=== PATIENT | female | born 1990 | race Caucasian/White ===

== ENCOUNTER 2021-12-15 07:49 | Inpatient (IN) ==
[2021-12-15] MEDS ORDERED: LIDOCAINE 1% LOCAL 20 ML VIAL INFIL PRN (09:12)
[2021-12-15] MEDS ORDERED: OXYTOCIN 30 UNITS/500 ML BAG IV PRN ×2 (09:12→09:15)
[2021-12-15 09:24] LABS: Hematocrit (blood only) 37.5 % (34.1-44.9); Hemoglobin 12.7 g/dl (12.0-16.0); Mean Corpuscular Hemoglobin 32.2 pg (25.0-34.0); Mean Corpuscular Hgb Conc 33.9 g/dL (32.0-36.0); Mean Corpuscular Volume 95.2 fL (80.0-100.0); Mean Platelet Volume 11.4 fL (9.4-12.3); Platelet Count 182 K/uL (130-400); RDW Standard Deviation 44.8 fL (36.4-46.3); Red Blood Count 3.94 M/uL (3.93-5.22); White Blood Count 5.15 K/ul (4.8-10.8)
[2021-12-15] MEDS ORDERED: Patient's ALLERGY Info needs ENTERED SCH (09:38)
[2021-12-15] MEDS: LACTATED RINGER'S 1,000 ML IV PRN ×3 (10:04→17:09)
[2021-12-15] MEDS ORDERED: ePHEDrine sulfate 50 MG/ML AMP ONE (13:43)
[2021-12-15] MEDS ORDERED: LIDOCAINE 2%/EPINEPHRINE 1:200,000 20 ML SDV ONE ×2 (13:44→20:49)
[2021-12-15] MEDS ORDERED: fentaNYL citrate 100 MCG/2 ML VIAL ONE (13:44)
[2021-12-15] MEDS ORDERED: BUPIVACAINE 0.25% 30 ML VIAL ONE (13:44)
[2021-12-15] MEDS ORDERED: SODIUM CHLORIDE 0.9% INJ 10 ML VIAL ONE (13:44)
[2021-12-15] MEDS ORDERED: fentaNYL 2MCG/ML ROPIVACAINE 1.25MG/ML 100 ML BAG EPI ONE (13:45)
[2021-12-15] MEDS ORDERED: NALBUPHINE HCL INJ 10 MG/ML AMP IV PRN (13:58)
[2021-12-15] MEDS ORDERED: NALOXONE HCL 1 MG in SODIUM CHLORIDE 0.9% 1000ML 1,000 ML IV PRN (13:58)
[2021-12-15] MEDS ORDERED: NALOXONE HCL 0.4 MG/1 ML VIAL/CARP IV PRN (13:58)
[2021-12-15] MEDS ORDERED: fentaNYL 2MCG/ML ROPIVACAINE 1.25MG/ML 100 ML BAG EPI PRN (13:58)
[2021-12-15] MEDS ORDERED: ONDANSETRON INJ 2 MG/ML 2 ML VIAL IV PRN (13:58)
[2021-12-15] MEDS ORDERED: diphenhydrAMINE 50 MG/ML VIAL IV PRN (13:58)
[2021-12-15] MEDS ORDERED: ePHEDrine sulfate 50 MG/ML AMP IV PRN (13:58)
--- NOTE | 2021-12-15 13:58 | Anesthesiology Consultation ---
Date of Service December 15, 2021 Assessment & Plan ASA ASA2 Proposed Anesthesia Anesthesia Type: Labor Epidural Risk / Benefits Reviewed With: PT / POA / Parent / Guardian, Accepts Plan and Informed Consent Obtained History Height/Weight Height: 5 ft 9 in Weight: 92.079 kg Allergies Allergy/AdvReac Type Severity Reaction Status Date / Time No Known Allergies Allergy Unverified 12/15/21 09:39 Medications Home Medications Medication Instructions Recorded Confirmed Last Taken levothyroxine 75 mcg tablet 75 mcg PO DAILY 12/15/21 12/15/21 12/15/21 liothyronine 5 mcg tablet 5 mcg DAILY 12/15/21 12/15/21 12/15/21 metformin 1,000 mg tablet 1,000 mg PO BID 12/15/21 12/15/21 12/15/21 Active Medications Generic Name Dose Route Start Last Admin Trade Name Freq PRN Reason Stop Dose Admin Lactated Ringer's 1,000 mls @ 125 mls/hr 12/15/21 09:12 12/15/21 11:12 Lr IV 12/17/21 09:11 125 mls/hr .Q8H PRN Administration L&D Protocol Protocol Oxytocin 30 units in 500 mls @ 12 mls/hr 12/15/21 09:15 12/15/21 12:35 Pitocin IV 12/17/21 09:14 0.72 units/hr .Q24H PRN 12 mls/hr Labor Induction/Augmentation Titration Protocol 0.72 UNITS/HR Past Medical History Medical History Hypothyroidism Polycystic disease, ovaries Exercise / Class Metabolic Activity II 4-5 Yardwork/Stairs/Walk up hill Past Family History Family History Other No known health problems Past Surgical History Surgical History Hx of breast reduction, elective Past Anesthesia History No Hx of Anesthesia Complications and No Family Hx of Anesthesia Complications History of PONV No Hx of PONV and No Hx of Motion Sickness Social History Smoking Status: Never smoker Do You Dip or Chew Tobacco: No Hx Alcohol Use: No Hx Substance Use: No Review of Systems denies fever/cough/ colds/ chest pain/ SOB/ EHSAN denies EHSAN Physical Exam Vital Signs Last Vital Signs Temp 36.6 C 12/15/21 13:48 Pulse 83 12/15/21 14:45 Resp 18 12/15/21 14:32 BP 128/78 12/15/21 14:45 Pulse Ox 97 12/15/21 14:42 ENMT Mouth: no TMJ abnormality and no dentition abnormality Thyromental Distance: > or= 3.5 Finger Breadths Mallampati Class: II Neck neck extension not limited Respiratory normal respiratory effort; no respiratory distress Auscultation: lungs clear to auscultation bilaterally Cardiovascular Rate/Rhythm: regular rate and regular rhythm Neurologic moves all extremities Psychiatric Orientation: alert and oriented x 3 Testing Laboratory Results 12/15/21 09:07
[2021-12-16] MEDS ORDERED: ACETAMINOPHEN 325 MG TAB PO PRN (00:48)
[2021-12-16] MEDS ORDERED: HYDROCORTISONE ACETATE 25 MG SUPP PR PRN (00:48)
[2021-12-16] MEDS ORDERED: OXYTOCIN 30 UNITS/500 ML BAG IV PRN (00:48)
[2021-12-16] MEDS ORDERED: DIPHTHERIA/TETANUS/PERTUSSIS 0.5 ML SYR/VIAL IM ONE (00:48)
[2021-12-16] MEDS ORDERED: miSOPROStoL 200 MCG TAB PR ONE (00:48)
[2021-12-16] MEDS ORDERED: METHYLERGONOVINE MALEATE 0.2 MG/ML AMP IM ONE (00:48)
--- NOTE | 2021-12-16 01:07 | Delivery Summary ---
DELIVERY NOTE: She is 1, para 1, blood type A positive, group B strep negative. Due date is 12/17/2021. She was brought in for induction at 39+ weeks' gestation for suspected macrosomia. Her cervix was ripe at the time of induction, she was 4 cm, 90% effaced. On admission, she was having co ntractions, which she was feeling about every 4 minutes, so we elected to start her on IV Pitocin whe n she developed a good pattern and the pain began to get more intense, she requested and received epi dural anesthesia for pain control. Then, membranes were ruptured surgically. At that time, fluid was clear. She continued to make slow steady progress and went to full dilatation. We let her labor do wn for a while and then she pushed out a live male via direct occiput anterior position over a n intact perineum. She pushed for approximately 1 hour. The was suctioned through the mouth and nose, it had a nuchal cord, but I was able to deliver the body around the cord and then I left th e cord attached and I let the cord pulse for 1 minute as held the baby below the placenta. I then cl amped the cord. Cord was cut by the father. Cord blood was taken. With IV Pitocin running, the nicki centa was removed intact. She had bilateral sulcus laceration along with a second-degree perineal la ceration. These defects were repaired anatomically. We started with the right sulcus, identified th e apex and then used a running 2-0 Vicryl out and to beyond the hymenal ring. Then, we identified th e left sulcus tear, and also approximated that with a running 2-0 Vicryl out and to beyond the hymena l ring. I then bolstered the rectal sphincter capsule with a horizontal suture. I did a deep suture to approximate the bulbocavernosus muscles. I did two separate horizontal sutures to approximate th e perineal body, another one to help approximate the bulbocavernosus muscle. I used local to give ad ditional pain relief and then I did a running subcuticular perineal skin approximation. Following th is, vaginal exam revealed all sponges were removed from the vagina. I could feel the repairs were go od, anatomical repairs, and then I did a rectal exam and along with this, I used rectal Cytotec. The re were no stitches through the rectal mucosa. Following this, hemostasis was good. The patient curly erated the procedure well. Job ID: [id number]
[2021-12-16] MEDS: BENZOCAINE 20% AER SPR 82.5 GM CAN EXT PRN (02:18)
[2021-12-16] MEDS: IBUPROFEN 600 MG TAB PO PRN ×6 (02:18→21:08)
--- NOTE | 2021-12-16 02:45 | Anesthesia Procedure Note ---
Date of Service December 16, 2021 Anesthesia Post Epidural Note Vital Signs Vital Signs: Temp Pulse Resp BP Pulse Ox 36.8 C 78 18 144/87 H 98 12/15/21 21:21 12/16/21 02:37 12/15/21 21:21 12/16/21 02:37 12/16/21 00:42 Pain Intensity Right Abdomen: Pain Intensity: 0 Notes Mental Status: alert / awake / arousable and participated in evaluation Nausea / Vomiting: adequately controlled Pain: adequately controlled Airway Patency, RR, SpO2: stable & adequate BP & HR: stable & adequate Hydration State: stable & adequate Neuraxial Anesthesia: was administered and sensory block is resolving Anesthetic Complications: no major complications apparent and Pt Satisfied with anesthetic care Epidural: Removed without complications and With tip intact
[2021-12-16] MEDS: oxyCODONE/ACETAMINOPHEN 5mg/325mg TAB PO PRN ×5 (02:47→21:09)
[2021-12-16] MEDS: ACETAMINOPHEN W/CODEINE #3 1 TAB PO PRN ×2 (05:13→14:21)
[2021-12-16] MEDS: LEVOTHYROXINE SODIUM 75 MCG TABLET PO SCH (06:17)
[2021-12-16] MEDS: PRENATAL VITAMIN 1 TAB PO SCH (09:00)
[2021-12-16] MEDS: DOCUSATE SODIUM 100 MG CAP PO SCH ×2 (09:01→21:10)
[2021-12-17] MEDS: IBUPROFEN 600 MG TAB PO PRN ×6 (01:05→22:37)
[2021-12-17] MEDS: oxyCODONE/ACETAMINOPHEN 5mg/325mg TAB PO PRN ×6 (01:05→22:36)
[2021-12-17] MEDS: LEVOTHYROXINE SODIUM 75 MCG TABLET PO SCH (06:53)
[2021-12-17 07:14] LABS: Hematocrit (blood only) 32.9 % (34.1-44.9); Hemoglobin 11.2 g/dl (12.0-16.0); Mean Corpuscular Hemoglobin 32.7 pg (25.0-34.0); Mean Corpuscular Volume 95.9 fL (80.0-100.0); Mean Platelet Volume 11.1 fL (9.4-12.3); Platelet Count 161 K/uL (130-400); RDW Coefficient of Variation 13.2 % (11.5-14.5); RDW Standard Deviation 45.8 fL (36.4-46.3); Red Blood Count 3.43 M/uL (3.93-5.22); White Blood Count 8.14 K/ul (4.8-10.8)
--- NOTE | 2021-12-17 07:28 | Obstetrical Progress Note ---
Date of Service December 17, 2021 Assessment & Plan Admission and Anticipated Discharge Date Admission Date: December 15, 2021 Subjective abdomen soft and non tender no calf tenderness ambulating well vaginal bleeding scant hgb 11.2 Results & Data ([facility]) Vital Signs (Past 12 Hours) Vital Signs Temp Pulse Resp BP Pulse Ox O2 Del Method 12/16/21 23:38 36.4 C L 72 18 115/78 98 Room Air
[2021-12-17] MEDS: ACETAMINOPHEN W/CODEINE #3 1 TAB PO PRN (08:10)
[2021-12-17] MEDS: DOCUSATE SODIUM 100 MG CAP PO SCH ×2 (08:11→20:35)
[2021-12-17] MEDS: PRENATAL VITAMIN 1 TAB PO SCH (08:11)
[2021-12-17] MEDS ORDERED: bisacodyL 5 MG TABEC PO SCH (20:00)
[2021-12-18] MEDS ORDERED: bisacodyL 10 MG SUPP PR PRN (00:48)
[2021-12-18] MEDS: oxyCODONE/ACETAMINOPHEN 5mg/325mg TAB PO PRN ×2 (03:10→08:01)
[2021-12-18] MEDS: IBUPROFEN 600 MG TAB PO PRN ×2 (03:10→08:01)
[2021-12-18] MEDS: LEVOTHYROXINE SODIUM 75 MCG TABLET PO SCH (06:35)
[2021-12-18 07:04] LABS: Hematocrit (blood only) 30.2 % (34.1-44.9); Hemoglobin 9.9 g/dl (12.0-16.0)
[2021-12-18] MEDS: PRENATAL VITAMIN 1 TAB PO SCH (08:02)
[2021-12-18] MEDS: DOCUSATE SODIUM 100 MG CAP PO SCH (08:02)
--- NOTE | 2021-12-18 08:42 | Obstetrical Progress Note ---
Date of Service December 18, 2021 Assessment & Plan Admission and Anticipated Discharge Date Admission Date: December 15, 2021 Subjective abdomen soft and non tender no calf tenderness ambulating well pain is under better control vaginal bleeding scant hgb 9.9 Results & Data ([facility]) Vital Signs (Past 12 Hours) Vital Signs Temp Pulse Resp BP Pulse Ox O2 Del Method 12/17/21 23:50 36.6 C 88 18 118/87 97 Room Air
[2021-12-18] MEDS: BENZOCAINE 20% AER SPR 82.5 GM CAN EXT PRN (09:14)
== END 2021-12-18 10:15 | disposition home or self-care (01) | DRG 807 ==
LOC: 4S1 07:49 → 4E2 12-16 03:49

== ENCOUNTER 2023-06-26 21:13 | Inpatient (IN) ==
[2023-06-26] MEDS ORDERED: OXYTOCIN 30 UNITS/NSS 30 UNITS/500 ML BAG IV PRN (22:00)
[2023-06-26] MEDS ORDERED: LIDOCAINE 1% LOCAL 20 ML VIAL INFIL PRN (22:00)
[2023-06-26 22:58] LABS: Hematocrit (blood only) 32.4 % (37.0-47.0); Hemoglobin 10.9 g/dl (12.0-16.0); Mean Corpuscular Hemoglobin 30.7 pg (25.0-34.0); Mean Corpuscular Hgb Conc 33.6 g/dL (32.0-36.0); Mean Corpuscular Volume 91.3 fL (80.0-100.0); Mean Platelet Volume 10.8 fL (9.4-12.4); Platelet Count 196 K/uL (130-400); RDW Coefficient of Variation 13.3 % (11.5-14.5); RDW Standard Deviation 44.1 fL (36.4-46.3); Red Blood Count 3.55 M/uL (4.20-5.40); White Blood Count 6.37 K/ul (4.8-10.8)
[2023-06-26] MEDS: miSOPROStoL 50 MCG TAB PO ONE (23:05)
[2023-06-27] MEDS: PENICILLIN GK 6 MU in DEXTROSE 5% 250 ML IV STA (00:01)
[2023-06-27] MEDS: PENICILLIN GK 3 MU in DEXTROSE 5% 100 ML IV PRN (04:13)
[2023-06-27] MEDS: LACTATED RINGER'S 1,000 ML IV PRN (07:37)
[2023-06-27] MEDS: OXYTOCIN 30 UNITS/NSS 30 UNITS/500 ML BAG IV PRN (07:38)
[2023-06-27] MEDS ORDERED: NALBUPHINE HCL 5 MG in SYRINGE 0 ML IV PRN (10:53)
[2023-06-27] MEDS ORDERED: BUPIVACAINE 0.25% PF 30 ML VIAL EPI PRN (10:53)
[2023-06-27] MEDS ORDERED: NALOXONE HCL 1 MG in SODIUM CHLORIDE 0.9% 1,000 ML IV PRN (10:53)
[2023-06-27] MEDS ORDERED: NALOXONE HCL 0.4 MG/1 ML VIAL/CARP IV PRN (10:53)
[2023-06-27] MEDS ORDERED: diphenhydrAMINE 50 MG/ML VIAL IV PRN (10:53)
[2023-06-27] MEDS ORDERED: LIDOCAINE 2% MPF LOCAL 5 ML VIAL EPI PRN (10:53)
[2023-06-27] MEDS ORDERED: fentaNYL citrate PF 100 MCG/2 ML VIAL EPI PRN (10:53)
[2023-06-27] MEDS ORDERED: ROPIVACAINE 0.5% PF 5 MG/ML 20 ML VIAL EPI PRN (10:53)
[2023-06-27] MEDS ORDERED: ePHEDrine sulfate 50 MG/ML AMP IV PRN (10:53)
[2023-06-27] MEDS ORDERED: fentANYL 2 MCG/ML BUPIVacaine 0.125%-NSS 100ML BAG EPI PRN (10:53)
[2023-06-27] MEDS ORDERED: SODIUM CHLORIDE 0.9% PF INJ 10 ML VIAL EPI PRN (10:53)
--- NOTE | 2023-06-27 10:55 | Anesthesiology Consultation ---
Date of Service June 27, 2023 Assessment & Plan Chart Review Chart Review: Acceptable Risk for Labor Epidural Consults Requested none History Height/Weight Height: 5 ft 9.5 in Weight: 87.09 kg Allergies Allergy/AdvReac Type Severity Reaction Status Date / Time No Known Allergies Allergy Verified 06/26/23 21:48 Medications Home Medications Medication Instructions Recorded Confirmed Last Taken levothyroxine 75 mcg tablet 75 mcg PO DAILY 12/15/21 06/26/23 06/26/23 metformin 1,000 mg tablet 1,000 mg PO BID 12/15/21 06/26/23 06/26/23 acetone (urine) test (Ketone Urine #50 ea 01/26/23 02/01/23 Unknown Test strips) blood sugar diagnostic (OneTouch #150 ea 01/26/23 02/01/23 Unknown Verio test strips) blood-glucose meter (OneTouch #1 ea 01/26/23 02/01/23 Unknown Verio Reflect Meter) lancets 33 gauge (OneTouch Delica #150 ea 01/26/23 02/01/23 Unknown Plus Lancet) Active Medications Generic Name Dose Route Start Last Admin Trade Name Freq PRN Reason Stop Dose Admin Lactated Ringer's 1,000 mls @ 125 mls/hr 06/26/23 22:00 06/27/23 10:34 Lr IV 06/28/23 21:59 999 mls/hr .Q8H PRN Infusion L&D Protocol Protocol Penicillin G Potassium 3 mu/ 106 mls @ 100 mls/hr 06/27/23 01:01 06/27/23 09:02 Dextrose IV 07/07/23 01:00 Infused Q4H PRN Infusion GBS(+) Until Delivery Oxytocin 30 units in 500 mls @ 10 mls/hr 06/27/23 07:04 06/27/23 10:30 Pitocin 30 Units/Nss IV 06/29/23 07:03 0.6 units/hr .Q24H PRN 10 mls/hr Labor Induction/Augmentation Titration Protocol 0.6 UNITS/HR Past Family History Family History Other No known health problems Past Surgical History Surgical History Hx of breast reduction, elective Social History Smoking Status: Never smoker Do You Dip or Chew Tobacco: No Hx Alcohol Use: No Hx Substance Use: No Physical Exam Vital Signs Last Vital Signs Temp 36.5 C 06/27/23 03:00 Pulse 80 06/27/23 10:50 Resp 18 06/27/23 03:00 BP 120/79 06/27/23 10:50 Testing Laboratory Results 06/26/23 22:31
[2023-06-27] MEDS: fentANYL 2 MCG/ML BUPIVacaine 0.125%-NSS 100ML BAG ONE (11:28)
[2023-06-27] MEDS: LIDOCAINE 2%/EPINEPHRINE 1:200,000 20 ML PF ONE (11:36)
[2023-06-27] MEDS: ePHEDrine sulfate 50 MG/ML AMP ONE (11:36)
[2023-06-27] MEDS: BUPIVACAINE 0.25% PF 30 ML VIAL ONE (11:36)
[2023-06-27] MEDS: SODIUM CHLORIDE 0.9% PF INJ 10 ML VIAL ONE (11:36)
[2023-06-27] MEDS: fentaNYL citrate PF 100 MCG/2 ML VIAL ONE (11:36)
[2023-06-27] MEDS: BUPIVACAINE 0.25% PF 30 ML VIAL EPI STA (12:30)
[2023-06-27] MEDS: SODIUM CHLORIDE 0.9% PF INJ 10 ML VIAL EPI STA (12:31)
[2023-06-27] MEDS: fentaNYL citrate PF 100 MCG/2 ML VIAL EPI STA (12:31)
[2023-06-27] MEDS: LIDOCAINE 2%/EPINEPHRINE 1:200,000 20 ML PF EPI STA (12:31)
[2023-06-27] MEDS: METHYLERGONOVINE MALEATE 0.2 MG/ML AMP ONE (14:50)
[2023-06-27] MEDS ORDERED: bisacodyL 10 MG SUPP PR PRN (14:54)
[2023-06-27] MEDS ORDERED: OXYTOCIN 30 UNITS/NSS 30 UNITS/500 ML BAG IV PRN (14:54)
[2023-06-27] MEDS ORDERED: oxyCODONE/ACETAMINOPHEN 5mg/325mg TAB PO PRN (14:54)
[2023-06-27] MEDS ORDERED: HYDROCORTISONE ACETATE 25 MG SUPP PR PRN (14:54)
[2023-06-27] MEDS ORDERED: ACETAMINOPHEN 325 MG TAB PO PRN (14:54)
--- NOTE | 2023-06-27 15:02 | Delivery Summary ---
Vaginal Delivery Summary Date of Service June 27, 2023 Vaginal Delivery Summary Patient's been followed in our office for care and delivery. Patient has been well dated with a first trimester ultrasound. Patient is on thyroid replacement. Patient is on metformin for gestational diabetes. Sugars have been well-controlled. An ultrasound at 36 weeks did not reveal any discrepancy between the abdominal gestational size and the cephalic gestational size. Patient was brought in for induction at 39 weeks and 1 day. Induction was started with 1 tablet of p.o. Cytotec. She was then augmented with IV Pitocin. When she got to about 5 cm m she pushed out a live male via direct occiput anterior position over an intact perineum. Infant was suctioned through the mouth and the nose. Shoulders were delivered without difficulty. The cord was allowed to pulse for 1 full minute. There was a true knot noted in the cord. With IV Pitocin running the placenta was removed intact. Inspection of the perineum revealed a second-degree laceration. The vaginal mucosa was approximated out to beyond the hymenal ring. A deep suture was used to approximate the bulbocavernosus muscle. 2 deep sutures were used to approximate the perineal body. A separate deep suture was used to bolster the rectal sphincter capsule. A running subcuticular suture was used to approximate the perineal skin edges. Blood loss was 240 mL. Patient Toller procedure well left the delivery room in good condition.
[2023-06-27] MEDS: IBUPROFEN 600 MG TAB PO PRN (16:11)
[2023-06-27] MEDS: METHYLERGONOVINE MALEATE 0.2 MG/ML AMP IM ONE (16:13)
--- NOTE | 2023-06-27 17:02 | Anesthesia Procedure Note ---
Date of Service June 27, 2023 Anesthesia Post Epidural Note Vital Signs Vital Signs: Temp Pulse Resp BP Pulse Ox 36.8 C 91 H 20 108/66 97 06/27/23 11:31 06/27/23 16:53 06/27/23 16:23 06/27/23 16:53 06/27/23 14:30 Pain Intensity Bilateral Abdomen: Pain Intensity: 2 Notes Mental Status: alert / awake / arousable and participated in evaluation Nausea / Vomiting: adequately controlled Pain: adequately controlled Airway Patency, RR, SpO2: stable & adequate BP & HR: stable & adequate Hydration State: stable & adequate Neuraxial Anesthesia: was administered and sensory block is resolving Anesthetic Complications: no major complications apparent Epidural: Removed without complications and With tip intact
[2023-06-27] MEDS: DIPHTHER/TETAN/PERTUS Vaccine (Tdap, Adol/Adult) 0.5mL IM ONE (18:33)
[2023-06-27] MEDS: metFORMIN HCL 500 MG TAB PO SCH (19:08)
[2023-06-27] MEDS: BENZOCAINE 20% SPRY 85 APPLN/85 GM CAN EXT PRN (20:14)
[2023-06-27] MEDS: DOCUSATE SODIUM 100 MG CAP PO SCH (20:15)
[2023-06-28] MEDS: ACETAMINOPHEN W/CODEINE #3 1 TAB PO PRN (02:19)
[2023-06-28] MEDS: LEVOTHYROXINE SODIUM 100 MCG TABLET PO SCH (06:15)
[2023-06-28] MEDS ORDERED: LEVOTHYROXINE SODIUM 75 MCG TABLET PO SCH (06:30)
[2023-06-28 06:47] LABS: Hematocrit (blood only) 32.6 % (37.0-47.0); Hemoglobin 10.9 g/dl (12.0-16.0); Mean Corpuscular Hemoglobin 30.4 pg (25.0-34.0); Mean Corpuscular Hgb Conc 33.4 g/dL (32.0-36.0); Mean Corpuscular Volume 90.8 fL (80.0-100.0); Mean Platelet Volume 10.9 fL (9.4-12.4); Platelet Count 188 K/uL (130-400); RDW Coefficient of Variation 13.3 % (11.5-14.5); RDW Standard Deviation 43.8 fL (36.4-46.3); Red Blood Count 3.59 M/uL (4.20-5.40); White Blood Count 8.69 K/ul (4.8-10.8)
[2023-06-28] MEDS: PRENATAL VITAMIN 1 TAB PO SCH (08:59)
--- NOTE | 2023-06-28 10:29 | Obstetrical Progress Note ---
Date of Service June 28, 2023 Assessment & Plan Admission and Anticipated Discharge Date Admission Date: June 26, 2023 Subjective abdomen soft and non tender no calf tenderness ambulating well vaginal bleeding scant hgb 10.9 Results & Data Vital Signs (Past 12 Hours) Vital Signs Temp Pulse Resp BP Pulse Ox O2 Del Method 06/28/23 02:31 36.5 C 105 H 20 118/81 100 Room Air 06/27/23 23:50 36.5 C 81 18 108/73 98 Room Air
[2023-06-28] MEDS ORDERED: bisacodyL 5 MG TABEC PO SCH (20:00)
== END 2023-06-28 19:08 | disposition home or self-care (01) | DRG 807 ==
LOC: 4S1 21:13 → 4E2 06-27 18:11